=== PATIENT | male | born 1955 | race American Indian/Alaskan Native ===

== ENCOUNTER 2018-03-14 07:56 | Emergency (ER) | payer OTHER ==
[2018-03-14 09:50] LABS: Alanine Aminotransferase 9 units/L (7-56); Albumin 4.5 g/dL (3.9-5); BUN/Creatinine Ratio 11; Blood Urea Nitrogen 9 mg/dL (9-20); Calcium 9.3 mg/dL (8.4-10.2); Hemolysis Index 21; Lipase 33 units/L (13-60)
[2018-03-14 09:53] LABS: Basophils % (Auto) 0.3 % (0.0-1.8); Eosinophils % (Auto) 0.1 % (0.0-4.3); Hematocrit 41.7 % (35.5-45.6); Hemoglobin 14.1 gm/dl (11.8-15.2); Lymphocytes # (Auto) 0.9 K/mm3 (1.2-5.4); Lymphocytes % (Auto) 14.4 % (13.4-35.0); Mean Corpuscular HGB Conc 34 % (32-34); Mean Corpuscular Hemoglobin 28 pg (28-32); Mean Corpuscular Volume 83 fl (84-94); Monocytes # (Auto) 0.3 K/mm3 (0.0-0.8); Monocytes % (Auto) 4.6 % (0.0-7.3); Platelet Count 179 K/mm3 (140-440); Red Blood Count 5.01 M/mm3 (3.65-5.03); Red Cell Distribution Width 14.9 % (13.2-15.2)
[2018-03-14 10:06] LABS: Bilirubin,Urine NEG (Negative); Blood,Urine NEG (Negative); Color,Urine Yellow (Yellow); Mucus,Urine FEW /HPF; Protein,Urine <15 mg/dL mg/dL (Negative); Urobilinogen,Urine < 2.0 mg/dL (<2.0)
[2018-03-14] MEDS ORDERED: NACL 0.9% 1000 ML 1,000 ML IV ONE (12:20)
[2018-03-14] MEDS ORDERED: ZOFRAN IV ONE (12:21)
[2018-03-14] MEDS ORDERED: MORPHINE IV ONE (12:21)
--- NOTE | 2018-03-14 12:23 | Emergency Department Report ---
Chief Complaint: Abdominal Pain Stated Complaint: ABD PAIN Time Seen by Provider: 03/14/18 12:12 - HPI History of Present Illness: 62-year-old -[place] male presents to the emergency department by EMS from home with complaint of upper abdominal pain, nausea and vomiting that started about 4 AM this morning and has been going on since. He did not take anything for symptoms of presentation. He has a history of hypertension and recently diagnosed prostate cancer. He has not undergone any type of treatment for prostate cancer as of yet. Both his primary care physician and urologist are through the [facility]. No recent travel or sick contacts at home. He denies any fever, diarrhea or constipation, dysuria but does have some chills. - ROS Review of Systems: Positive for abdominal pain, nausea, vomiting and chills Negative for diarrhea, constipation, dysuria - Exam Vital Signs: Vital Signs 03/14/18 03/14/18 08:54 12:05 Temperature 97.5 F L 98.0 F Pulse Rate 65 71 Respiratory 20 18 Rate Blood Pressure 152/90 Blood Pressure 166/94 [Left] O2 Sat by Pulse 98 99 Oximetry Physical Exam: There is some reproducible upper abdominal tenderness to palpation but no guarding. Heart and lungs sounds are normal auscultation. MSE screening note: Focused history and physical exam performed. Due to findings the following was ordered: The patient's labs thus far have been unremarkable. We will place an IV and give him IV fluid resuscitation, antiemetics, pain medication and will order a 2 view x-ray of the abdomen to start. ED Medical Decision Making - Lab Data Result diagrams: 03/14/18 09:19 03/14/18 09:19 ED Disposition for MSE Condition: Stable Referrals: [facility] [Other] - 3-5 Days
--- NOTE | 2018-03-14 12:47 | XRay Report ---
ABDOMEN, 2 views: History: Abdominal pain. There is no evidence of free air beneath the diaphragms. The gas pattern within the abdomen is unremarkable. There is no evidence of bowel dilatation, significant air-fluid levels, or pathologic calcifications. Organ shadows are unremarkable. IMPRESSION: Unremarkable abdomen.
[2018-03-14] MEDS ORDERED: TORADOL IV ONE (12:50)
[2018-03-14] MEDS ORDERED: TORADOL ONE (12:50)
--- NOTE | 2018-03-14 15:58 | Emergency Department Report ---
ED N/V/D HPI - General Chief complaint: Abdominal Pain Stated complaint: ABD PAIN Time Seen by Provider: 03/14/18 12:12 Source: patient, EMS Mode of arrival: Wheelchair Limitations: No Limitations - History of Present Illness Initial comments: 62-year-old male past medical history prostate cancer, hypertension presents with complaint of epigastric pain upper abdominal pain with associated nausea which started this morning. Pt is currently awake alert and oriented 3 not in acute distress. States that he has had epigastric discomfort since 4 AM this morning. Had a few episodes of vomiting. Symptoms have since resolved. Patient feels no nausea or pain at the time that I interview him. Accompanied by family members at bedside. Denies any recent antibiotic use denies any dysuria hematuria or increased urinary frequency at this time. Denies any chest pain at this time but does state that he felt slight chest pain worse when he took a deep breath earlier. Has since resolved. Patient does not have a personal history of PE or DVT. However does have a history of active malignancy which is being worked up at [facility]. Denies chest pain at this moment. Denies diarrhea. States that he made home-cooked grits which he suspects may have made him sick last night. Also states that he is been eating salads on a daily basis for over a month. MD complaint: nausea, vomiting -: This morning Description of Vomiting: food contents, watery Description of Diarrhea: water Location: epigastric Severity: mild Quality: aching, dull Consistency: intermittent Improves with: none Context: possible food poisoning - Related Data Previous Rx's Medication Instructions Recorded Last Taken Type Famotidine [Pepcid] 20 mg PO BID PRN #30 tablet 03/14/18 Unknown Rx Ondansetron [Zofran Odt] 4 mg PO Q8H PRN #10 tab.rapdis 03/14/18 Unknown Rx Allergies Allergy/AdvReac Type Severity Reaction Status Date / Time No Known Allergies Allergy Unverified 03/14/18 08:54 ED Review of Systems ROS: Stated complaint: ABD PAIN Other details as noted in HPI Constitutional: denies: chills, fever Eyes: denies: eye pain, eye discharge, vision change ENT: denies: ear pain, throat pain Respiratory: denies: cough, shortness of breath, wheezing Cardiovascular: denies: chest pain, palpitations Endocrine: no symptoms reported Gastrointestinal: denies: abdominal pain, nausea, diarrhea Genitourinary: denies: urgency, dysuria Musculoskeletal: denies: back pain, joint swelling, arthralgia Skin: denies: rash, lesions Neurological: denies: headache, weakness, paresthesias Psychiatric: denies: anxiety, depression Hematological/Lymphatic: denies: easy bleeding, easy bruising ED Past Medical Hx - Past Medical History Previous Medical History?: Yes Hx Hypertension: Yes Hx of Cancer: Yes (prostate) - Surgical History Past Surgical History?: Yes Additional Surgical History: prostate biopsy - Social History Smoking Status: Former Smoker Substance Use Type: Prescribed - Medications Home Medications: Home Medications Medication Instructions Recorded Confirmed Last Taken Type Famotidine [Pepcid] 20 mg PO BID PRN #30 tablet 03/14/18 Unknown Rx Ondansetron [Zofran Odt] 4 mg PO Q8H PRN #10 tab.rapdis 03/14/18 Unknown Rx ED Physical Exam - General Limitations: No Limitations General appearance: alert, in no apparent distress - Head Head exam: Present: atraumatic, normocephalic - Eye Eye exam: Present: normal appearance - ENT ENT exam: Present: mucous membranes moist - Neck Neck exam: Present: normal inspection - Respiratory Respiratory exam: Present: normal lung sounds bilaterally. Absent: respiratory distress - Cardiovascular Cardiovascular Exam: Present: regular rate, normal rhythm. Absent: systolic murmur, diastolic murmur, rubs, gallop - GI/Abdominal GI/Abdominal exam: Present: soft (there is slight epigastric tenderness but abdomen is otherwise unremarkable and nontender patient has no guarding and no rebound no tenderness at McBurney's point), normal bowel sounds - Rectal Rectal exam: Present: deferred - Extremities Exam Extremities exam: Present: normal inspection - Back Exam Back exam: Present: normal inspection - Neurological Exam Neurological exam: Present: alert, oriented X3, CN II-XII intact, normal gait - Psychiatric Psychiatric exam: Present: normal affect, normal mood - Skin Skin exam: Present: warm, dry, intact, normal color. Absent: rash ED Course Vital Signs 03/14/18 03/14/18 03/14/18 08:54 12:05 13:21 Temperature 97.5 F L 98.0 F Pulse Rate 65 71 Respiratory 20 18 20 Rate Blood Pressure 152/90 Blood Pressure 166/94 [Left] Blood Pressure [Right] O2 Sat by Pulse 98 99 Oximetry 03/14/18 18:52 Temperature 99.1 F Pulse Rate 72 Respiratory Rate Blood Pressure Blood Pressure [Left] Blood Pressure 141/80 [Right] O2 Sat by Pulse 100 Oximetry ED Medical Decision Making - Lab Data Result diagrams: 03/14/18 09:19 03/14/18 09:19 - Medical Decision Making A/P: Epigastric pain, nausea and vomiting 1-case discussed with Dr. Duong. Troponin negative 2, EKG unremarkable at this time no STEMI. HEART Score 2 points Low Score (0-3 points). Risk of MACE of 0.9-1.7%. 2-patient tolerating by mouth fluid and food without difficulty upon discharge, vital signs stable upon discharge 3-Zofran when necessary 4-CT scan shows no pulmonary embolism or aortic aneurysm/dissection. I ordered this because patient had positive d-dimer. D-dimer was ordered and context the patient telling me that he had one episode of pleuritic chest pain with a history of active prostate CA . Patient denies any dysuria or increased urinary frequency or rectal pain at this time. Denies fevers or chills. Critical care attestation.: If time is entered above; I have spent that time in minutes in the direct care of this critically ill patient, excluding procedure time. ED Disposition Clinical Impression: Epigastric abdominal pain Nausea & vomiting Qualifiers: Vomiting type: unspecified Vomiting Intractability: non-intractable Qualified Code(s): R11.2 - Nausea with vomiting, unspecified Disposition: DC-01 TO HOME OR SELFCARE Is pt being admited?: No Does the pt Need Aspirin: No Condition: Stable Instructions: Acute Nausea and Vomiting (ED), Abdominal Pain (ED) Prescriptions: Famotidine [Pepcid] 20 mg PO BID PRN #30 tablet PRN Reason: Indigestion Ondansetron [Zofran Odt] 4 mg PO Q8H PRN #10 tab.rapdis PRN Reason: Nausea Referrals: [facility] [Other] - 3-5 Days Forms: Accompanied Note, Work/School Release Form(ED) Time of Disposition: 18:56
[2018-03-14 18:54] VITALS: BP 141/80
--- NOTE | 2018-03-14 20:55 | Cat Scan Report ---
FINAL REPORT PROCEDURE: CT ANGIO CHEST TECHNIQUE: Computerized tomographic angiography of the chest was performed after the IV injection of iodinated nonionic contrast including image processing. The image data was postprocessed using 2-dimensional multiplanar reformatted (MPR) and 3-dimensional (MIP and/or volume rendered) techniques. HISTORY: + d-dimer, chest pain COMPARISON: No prior studies are available for comparison. FINDINGS: Heart and pericardium: No pericardial effusion or thickening. Thoracic aorta: No aneurysm or dissection. Pulmonary vasculature: Normal. Lymph nodes: No enlarged thoracic lymph nodes. Lungs: Normal. Pleural space: No effusion, thickening, or pneumothorax. Musculoskeletal structures: No acute abnormality. Upper abdominal structures: No significant abnormality. IMPRESSION: No evidence of pulmonary emboli
== END 2018-03-14 19:13 | disposition home or self-care (01) ==
LOC: ED 07:56
DX: R10.13 Epigastric pain (principal); R11.2 Nausea with vomiting, unspecified; R19.7 Diarrhea, unspecified; I10 Essential (primary) hypertension; Z87.891 Personal history of nicotine dependence
CPT/HCPCS: 36415; 71275; 74019; 80053; 81001; 82140; 83690; 84484; 85025; 85379; 93005; 93010; 96361; 96374; 96375; 99285; J1885; J2405; J7030; Q9967; J2270